=== PATIENT | female | born 1965 | race Caucasian/White ===

== ENCOUNTER 2017-04-13 14:42 | Outpatient (CLI) ==
[2017-04-13 14:54] LABS: BASOPHILS # (AUTO) 0.1 K/uL (0-0.2); BASOPHILS % (AUTO) 0.6 % (0.0-3.0); EOSINOPHILS # (AUTO) 0.2 K/ul (0.0-0.7); EOSINOPHILS % (AUTO) 2.3 % (0.0-7.0); HEMATOCRIT 39.8 % (37.0-47.0); HEMOGLOBIN 13.7 g/dl (12.0-16.0); IMMATURE GRANULOCYTE % (AUTO) 0.6 % (0.0-5.0); LYMPHOCYTES # (AUTO) 2.9 K/uL (0.60-3.4); LYMPHOCYTES % (AUTO) 29.8 (10.0-50.0); MEAN CORPUSCULAR HEMOGLOBIN 28.3 pg (27.0-31.0); MEAN CORPUSCULAR HGB CONC 34.4 (31.8-35.4); MEAN CORPUSCULAR VOLUME 82.2 fl (81.0-99.0); MONOCYTES # (AUTO) 0.9 K/uL (0.4-2.0); NEUTROPHILS # (AUTO) 5.5 K/ul (2.0-6.9); NEUTROPHILS % (AUTO) 57.7; PLATELET COUNT 335 10^3/uL (140-440); RED BLOOD COUNT 4.84 10^6/ul (4.20-5.40); WHITE BLOOD COUNT 9.55 K/ul (4.6-10.2)
[2017-04-13 14:56] LABS: BILIRUBIN,URINE Negative (NEGATIVE); KETONES,URINE Negative (NEGATIVE); LEUKOCYTE ESTERASE ,URINE Negative (NEGATIVE); NITRITE,URINE Positive (NEGATIVE); PH,URINE 7.5 (5-9); PROTEIN,URINE 3+ (NEGATIVE); URINE, BLOOD Negative (NEGATIVE)
[2017-04-13 15:00] LABS: ADD URINE MICROSCOPIC YES
[2017-04-13 15:10] LABS: BACTERIA,URINE 2+ (NOT PRESENT)
[2017-04-13 15:35] LABS: ALBUMIN 3.6 g/dL (3.4-5.0); ANION GAP 14.7; BILIRUBIN,TOTAL 0.51 mg/dL (0.00-1.20); BUN/CREATININE RATIO 11.94; CALCIUM 9.9 mg/dL (8.2-10.2); CHOL/HDL RATIO 5.3 (4.5-5.5); CREATININE 0.67 mg/dL (0.60-1.30); POTASSIUM 3.7 mmol/L (3.5-5.10); TOTAL PROTEIN 7.2 g/dL (6.4-8.2)
== END 2017-04-13 14:43 | disposition home or self-care (01) ==
LOC: LAB 14:42
PROVIDERS: ATTEND Nurse Practitioner Family
DX: I10 Essential (primary) hypertension (principal)
CPT/HCPCS: 36415; 80053; 80061; 81001; 84443; 85025; 87086; 93005; 93010

== ENCOUNTER 2017-05-10 16:17 | Outpatient (CLI) ==
[2017-05-10 17:01] LABS: BILIRUBIN,URINE Negative (NEGATIVE); KETONES,URINE Negative (NEGATIVE); LEUKOCYTE ESTERASE ,URINE Trace (NEGATIVE); NITRITE,URINE Positive (NEGATIVE); PROTEIN,URINE 2+ (NEGATIVE); URINE, BLOOD Negative (NEGATIVE)
[2017-05-10 17:06] LABS: ADD URINE MICROSCOPIC YES; BACTERIA,URINE 3+ (NOT PRESENT)
== END 2017-05-10 16:18 | disposition home or self-care (01) ==
LOC: LAB 16:17
PROVIDERS: ATTEND Nurse Practitioner Family
DX: R30.0 Dysuria (principal)
CPT/HCPCS: 81001; 87086

== ENCOUNTER 2017-11-10 12:15 | Inpatient (IN) ==
[2017-11-10] MEDS ORDERED: ZESTRIL PO STA ×2 (12:33→14:36)
[2017-11-10] MEDS ORDERED: TRANDATE IVP STA (12:41)
--- NOTE | 2017-11-10 14:31 | ED.PDOC ---
General ED Provider: Dr. MARIPOSA BARAJAS Chief Complaint: Hypertension Stated Complaint: HYPERTENSION Time Seen by Physician: 12:17 Mode of Arrival: Walk-In Information Source: Patient Exam Limitations: No limitations Primary Care Provider: YAZMIN NUGENT Nursing and Triage Documentation Reviewed and Agree: Yes Reviewed sepsis parameters & appropriate labs ordered?: Yes System Inflammatory Response Syndrome: Not Applicable Sepsis Protocol: For patient's 13 years and over: Temp is 96.8 and below OR 101 and greater Pulse >90 BPM Resp >20/minute Acutely Altered Mental Status Are patient's symptoms suggestive of a new infection, such as: -Pneumonia -Skin, Soft Tissue -Endocarditis -UTI -Bone, Joint Infection -Implantable Device -Acute Abdominal Infection -Wound Infection -Meningitis -Blood Stream Catheter Infection -Unknown System Inflammatory Response Syndrome: Not Applicable Cardiovascular Complaint Exam - Hypertension Complaint/Exam Onset/Duration: PT OFF MEDS FOR MONTHS TODAY B/P AT HOME WAS HIGH Symptoms Are: Still present Timing: Constant Reported B/P Prior to Arrival: 230/110 Aggravating: Reports: None Alleviating: Reports: None Associated Signs and Symptoms: Denies: Chest pain, Vision changes, Anxiety, Recent stress, Headache, Numbness, Tingling, Weakness, Dizziness, Short of air, Swelling Related History: Reports: Similar episode, Current ARBs Related Surgical History: Reports: None Cardiac Risk Factors: Reports: Hypertension Recent Change in Medications: No A/V [place]: No Papilledema Present: No JVD Present: No Carotid Bruit Present: No Femoral Pulses Bounding: No Differential Diagnoses: Hypertensive Urgency Quality Indicator For Non-Traumatic Chest Pain/Syncope: EKG Performed Review of Systems - Review Of Systems Constitutional: Reports: No symptoms Eyes: Reports: No symptoms Ears, Nose, Mouth, Throat: Reports: No symptoms Respiratory: Reports: No symptoms Cardiac: Reports: No symptoms GI: Reports: No symptoms : Reports: No symptoms Musculoskeletal: Reports: No symptoms Skin: Reports: No symptoms Neurological: Reports: No symptoms Endocrine: Reports: No symptoms Hematologic/Lymphatic: Reports: No symptoms All Other Systems: Reviewed and Negative Past Medical History - Past Medical History Previously Healthy: Yes Endocrine: Reports: None Cardiovascular: Reports: Hypertension Respiratory: Reports: None Hematological: Reports: None Gastrointestinal: Reports: None Genitourinary: Reports: None Neuro/Psych: Reports: None Musculoskeletal: Reports: None Cancer: Reports: None Last Menstrual Period: na - Surgical History General Surgical History: Reports: None - Family History Family History: Reports: None - Social History Smoking Status: Never smoker Hx Substance Use: No Alcohol Screening: None Physical Exam - Physical Exam Appearance: Well-appearing, No pain distress, Well-nourished Eyes: NESSA, EOMI, Conjunctiva clear ENT: Ears normal, Nose normal, Oropharynx normal Respiratory: Airway patent, Breath sounds clear, Breath sounds equal, Respirations nonlabored Cardiovascular: RRR, Pulses normal, No rub, No murmur GI/: Soft, Nontender, No masses, Bowel sounds normal, No Organomegaly Musculoskeletal: Normal strength, ROM intact, No edema, No calf tenderness Skin: Warm, Dry, Normal color Neurological: Sensation intact, Motor intact, Reflexes intact, Cranial nerves intact, Alert, Oriented Psychiatric: Affect appropriate, Mood appropriate Interpretation - Acetaldehyde Converter Operator Rate: Normal Rhythm: Sinus Ectopy: None - EKG Interpretation Rate: Normal Rhythm: Sinus Ectopy: None [place]: NL ST Segment: Normal Physician Notification - Case Discussed Physician Notified: SHANE Time of Notification: 14:37 Admit To: Inpatient Critical Care Note - Critical Care Note Total Time (mins): 0 Course - Course Hematology/Chemistry: 11/10/17 12:45 Orders, Labs, Meds: Lab Review 11/10/17 11/10/17 12:45 12:45 WBC 8.24 RBC 4.59 Hgb 13.3 Hct 38.0 MCV 82.8 MCH 29.0 MCHC 35.0 RDW Coeff of Ly 13.6 Plt Count 282 Immature Gran % (Auto) 0.4 Neut % (Auto) 61.9 Lymph % (Auto) 26.2 Jewell % (Auto) 7.9 Eos % (Auto) 2.8 Baso % (Auto) 0.8 Immature Gran # (Auto) 0.0 Neut # (Auto) 5.1 Lymph # (Auto) 2.2 Jewell # (Auto) 0.7 Eos # (Auto) 0.2 Baso # (Auto) 0.1 Total Creatine Kinase 38 Troponin I < 0.0100 Orders Category Date Time Status EKG-(ED ONLY) Stat CARDIO 11/10/17 12:33 Completed ED IV/MEDIPORT/POWERPORT .ONCE EMERGENCY 11/10/17 12:33 Active CBC W/ AUTO DIFF Stat LAB 11/10/17 12:45 Completed CREATINE KINASE Stat LAB 11/10/17 12:45 Completed TROPONIN I Stat LAB 11/10/17 12:45 Completed URINALYSIS C & S IF INDICATED Stat LAB 11/10/17 12:41 Uncollected 0.9 % Sodium Chloride [Saline Flush] MEDS 11/10/17 12:32 Active 1 syr IVF PRN PRN Labetalol HCl [Trandate] MEDS 11/10/17 12:41 Discontinued 20 mg IVP ONCE STA Medications Generic Name Dose Route Start Last Admin Trade Name Freq PRN Reason Stop Dose Admin Sodium Chloride 1 syr 11/10/17 12:32 Saline Flush IVF PRN PRN To flush IV Discontinued Medications Generic Name Dose Route Start Last Admin Trade Name Freq PRN Reason Stop Dose Admin Labetalol HCl 20 mg 11/10/17 12:41 11/10/17 13:07 Trandate IVP 11/10/17 12:42 20 mg ONCE STA Administration Vital Signs: Temp Pulse Resp BP Pulse Ox 11/10/17 12:18 97.4 F L 64 16 205/112 H 97 BOBBY Risk Score BOBBY Risk Score: Risk Score Odds of by 30D 0 0.1 (0.1-0.2) 1 0.3 (0.2-0.3) 2 0.4 (0.3-0.5) 3 0.7 (0.6-0.9) 4 1.2 (1.0-1.5) 5 2.2 (1.9-2.6) 6 3.0 (2.5-3.6) 7 4.8 (3.8-6.1) Departure - Departure Time of Disposition: 14:35 Disposition: ADMITTED INPATIENT Discharge Problem: Hypertensive urgency Instructions: Hypertension (ED) Condition: Good Pt referred to PMD for follow-up: Yes IPMP verified?: No Additional Instructions: Please call your Family Physician as soon as possible to schedule a follow-up appointment. Allergies/Adverse Reactions: Allergies Penicillins Allergy (Intermediate, Unverified 04/13/17 13:47) bleeding "my pores open up and I start bleeding" Home Medications: Ambulatory Orders 1 [No Reported Medications] 11/10/17 Disposition Discussed With: Patient
[2017-11-10] MEDS ORDERED: SODIUM CHLORIDE 1,000 ML IV STA (14:37)
[2017-11-10] MEDS ORDERED: TYLENOL PO PRN (15:48)
[2017-11-10] MEDS ORDERED: SODIUM CHLORIDE 1,000 ML IV SCH (16:00)
[2017-11-10 16:02] VITALS: BMI 38.7
[2017-11-10] MEDS: LOPRESSOR IVP PRN (16:54)
--- NOTE | 2017-11-10 17:30 | CT ---
EXAM: Noncontrast CT head. HISTORY: Headache. Hypertension. COMPARISON: None available at the time of dictation. TECHNIQUE: Noncontrast CT head was performed with axial , coronal and sagittal reconstructions. Findings: There is preservation of the hill-white differential without evidence of definitive large vessel acut e cortical infarct identified. No acute intracranial hemorrhage is identified. No midline shift is i dentified. No definitive intracranial mass lesion is identified within technical limitations of nonco ntrast CT. The basal cisterns are patent. The ventricles are normal in size and configuration. Limi socorro evaluation of the skull demonstrates no visualized lucent skull acute fractures or destructive os seous lesions identified within the visualized portions of the skull. Partially visualized paranasal sinuses and mastoid air cells appear relatively clear in the visualized regions. Impression: 1. No acute intracranial hemorrhage or definitive large vessel acute cortical infarct identified.
[2017-11-10] MEDS: LIBRIUM PO SCH ×2 (18:30→20:05)
[2017-11-11] MEDS: LOPRESSOR IVP PRN ×2 (05:27→18:42)
[2017-11-11] MEDS: LIBRIUM PO SCH ×3 (10:38→20:53)
[2017-11-11] MEDS: CIPRO PO SCH ×2 (10:38→20:54)
[2017-11-11] MEDS: LOPRESSOR PO SCH ×2 (11:27→17:11)
--- NOTE | 2017-11-11 11:29 | DI ---
EXAM: Chest two views HISTORY: Coughing COMPARISON: None TECHNIQUE: Two views of the chest were performed FINDINGS: The lungs are clear. There is no pleural effusion or pneumothorax. The heart is normal i n size. The mediastinal contour is normal, noting atherosclerosis. There are no acute abnormalities of the bones. IMPRESSION: No acute cardiopulmonary process.
[2017-11-12] MEDS: LOPRESSOR IVP PRN (02:22)
[2017-11-12] MEDS: CIPRO PO SCH ×2 (05:24→21:06)
[2017-11-12] MEDS: LOPRESSOR PO SCH ×2 (09:34→17:09)
[2017-11-12] MEDS: LIBRIUM PO SCH ×3 (09:34→21:06)
[2017-11-12] MEDS ORDERED: DECADRON 4 MG/ML SDV IVP STA (14:05)
[2017-11-12] MEDS: ZESTRIL PO SCH (14:59)
[2017-11-12] MEDS ORDERED: LIPITOR PO SCH (21:00)
[2017-11-13] MEDS: CIPRO PO SCH (05:21)
[2017-11-13] MEDS: LOPRESSOR PO SCH ×2 (08:19→17:28)
[2017-11-13] MEDS: ZESTRIL PO SCH (08:19)
[2017-11-13] MEDS: LIBRIUM PO SCH ×2 (08:19→14:59)
[2017-11-13 15:16] VITALS: BP 136/84; TEMP 97.8
--- NOTE | 2017-12-11 13:46 | HP ---
DATE OF SERVICE: 11/10/17 CHIEF COMPLAINT: Elevated blood pressure HISTORY OF PRESENT ILLNESS: This is a 52 year old female with history of hypertension, GERD who came to the emergency room as the patient had been having some frontal headaches and found to have a blood pressure 205/112. She was seen by Dr. Mehta in the emergency room 20 mg of Labetalol IV push was given and it did not help with the blood pressure. Lisinopril 40 mg was given and did not decrease the blood pressure. Labs were normal. At that time as the patient's blood pressure was not controlled, she was admitted to the hospital for headache and the patient was hypertensive urgency and for controlling the blood pressure. REVIEW OF SYSTEMS: CONSTITUTIONAL: No fever, no chills. Weakness, tiredness. HEENT: Headache, no blurring vision. ENDOCRINE: No weight gain; no weight loss. CVS: No chest pain. No PND, no orthopnea. No shortness of breath. No PND, no orthopnea. RESPIRATORY: No cough, no congestion. No hemoptysis. GI: No nausea, no vomiting. No abdominal pain. No melena. : No hematuria. No polyuria. MUSCULOSKELETAL: No joint swelling. PSYCHIATRIC: Not anxious. No depression. No suicidal thoughts. No homicidal thoughts. SKIN: Intact, no open lesions. PAST MEDICAL HISTORY: Coronary artery disease Hypertension Headaches GERD Aspiration ventilatory for laryngospasm PAST SURGICAL HISTORY: Partial Hysterectomy PERSONAL HISTORY: Does drink alcohol occasionally. FAMILY HISTORY: Significant for triple A. MEDICATIONS: None. ALLERGIES: Penicillin PHYSICAL EXAMINATION: V/S: Blood pressure 205/112, respiratory rate 16, heart rate 64, temperature 97.4. HEENT: Atraumatic, normocephalic. No scleral icterus. NECK: Supple. No JVD, no bruit. No lymphadenopathy. No thyromegaly. HEART: S1, S2 normal. No murmur. No cyanosis or clubbing. No ascites. LUNGS: Clear to auscultation. No rales or rhonchi. ABDOMEN: Soft, nontender. Bowel sounds are active. No CVA tenderness. No rigidity or guarding. EXTREMITIES: No pedal edema. No cyanosis or clubbing MUSCULOSKELETAL: Normal joints, no swelling. NEUROLOGIC: Normal. SKIN: Intact; no open lesions. LYMPHATIC: No lymph nodes palpable. LABS: Sodium 139, potassium 3.7, chloride 102, bicarb 29, BUN 10, creatinine 0.66, glucose 113, white count 8.24, hemoglobin 13.3, hematocrit 38.0, platelet count 282. ASSESSMENT: 1. HYPERTENSIVE URGENCY WITH HEADACHE 2. HISTORY OF PARTIAL HYSTERECTOMY PLAN: 1. Admit the patient to the regular floor. 2. CBC, CMP today and daily. 3. Cardiac enzymes and Troponins. 4. Lopressor 5 mg every 6 hours prn. 5. Lisinopril 40 mg p.o daily. 6. Will start the patient on the Librium p.o. 10 three times daily. TIME SPENT: MORE THAN 65 minutes for admission. MTDD
--- NOTE | 2017-12-11 13:59 | PN ---
DATE OF SERVICE: 11/11/17 SUBJECTIVE: 52 year old female admitted with hypertensive urgency in the emergency room with a headache. The patient was given Labetalol IV push and Metoprolol IV push and then started on the Lisinopril. Blood pressure is still 177/92, 177/97. Headache is better, but has some sinus congestion and cold, otherwise no blurring vision, no chest pain, PND on orthopnea. REVIEW OF SYSTEMS: CONSTITUTIONAL: No fever, no chills. HEENT: Normal. Headache is better. Sinus congestion. ENDOCRINE: No weight gain, no weight loss. CVS: No angina symptoms. No CHF symptoms. No palpitations. No atypical chest pain for CAD. No shortness of breath. No PND, no orthopnea. RESPIRATORY: No cough, no hemoptysis. GI: No nausea, no vomiting. No abdominal pain. : No hematuria. No polyuria. MUSCULOSKELETAL: No joint swelling. PSYCHIATRIC: Not anxious. No depression. No suicidal thoughts. No homicidal thoughts. SKIN: Intact. No rash. PHYSICAL EXAMINATION: GENERAL: Obese lady lying in the bed and not in any distress. V/S: Blood pressure 177/97, respiratory rate 16, heart rate 63, temperature 98.3. HEENT: Normocephalic, atraumatic. Mucosa dry. NECK: Supple. No JVD, no carotid bruit. No lymphadenopathy. LUNGS: Decreased and clear. No rales or rhonchi. HEART: S1, S2 normal. No S3. No murmur, gallop or regurgitation. ABDOMEN: Soft, nontender. Bowel sounds active. No rigidity. No rebound or guarding. No CVA tenderness. EXTREMITIES: No pedal edema. No clubbing or cyanosis MUSCULOSKELETAL: No joint swelling. NEUROLOGIC: Awake, alert, oriented times three. No focal deficit. LYMPHATIC: No lymph nodes palpable. SKIN: Intact. LABS: White count 7.28, hemoglobin 12.2, hematocrit 35.2, platelet count 264, sodium 139, potassium 3.6, chloride 105, bicarb 24, BUN 10, creatinine 0.67, glucose 161. ASSESSMENT: 1. HYPERTENSIVE URGENCY WITH HEADACHE 2. DYSLIPIDEMIA 3. OBESITY 4. GERD 5. URINARY TRACT INFECTION ORGANISM KLEBSIELLA PNEUMONIAE PLAN: 1. Start the patient on the Metoprolol 25 mg twice a day. 2. UTI, so we will put the patient on Cipro 250 mg twice a day. 3. Ordered the lipid profile and TSH. 4. Stop the IV fluids. 5. Out of bed to chair. 6. Activity as tolerated. 7. Start the Librium. TIME SPENT: More than 35 minutes MTDD
--- NOTE | 2017-12-11 14:13 | PN ---
DATE OF SERVICE: 11/12/17 SUBJECTIVE: The patient is complaining of some cough and congestion. No fever or chills. Blood pressure is 164/90, 156/90, 158/56. No headache. No blurring vision. REVIEW OF SYSTEMS: CONSTITUTIONAL: No fever, no chills. HEENT: Normal. No headache. No blurring vision. ENDOCRINE: No weight gain, no weight loss. CVS: No angina symptoms. No CHF symptoms. No palpitations. No atypical chest pain for CAD. No shortness of breath. No PND, no orthopnea. RESPIRATORY: Cough and congestion, no hemoptysis. GI: No nausea, no vomiting. No abdominal pain. : No hematuria. No polyuria. MUSCULOSKELETAL: No joint swelling. PSYCHIATRIC: Not anxious. No depression. No suicidal thoughts. No homicidal thoughts. SKIN: Intact. No rash. PHYSICAL EXAMINATION: V/S: Blood pressure 158/59, respiratory rate 20, heart rate 64, temperature 98.8 , saturation 94. HEENT: Normocephalic, atraumatic. Mucosa dry. NECK: Supple. No JVD, no carotid bruit. No lymphadenopathy. LUNGS: Clear and equal. No rales or rhonchi. HEART: S1, S2 normal. No S3. No murmur, gallop or regurgitation. ABDOMEN: Soft, nontender. Bowel sounds active. No rigidity. No rebound or guarding. No CVA tenderness. EXTREMITIES: No pedal edema. No clubbing or cyanosis MUSCULOSKELETAL: No joint swelling. NEUROLOGIC: Awake, alert, oriented times three. No focal deficit. LYMPHATIC: No lymph nodes palpable. SKIN: Intact. LABS: Sodium 138, potassium 3.9, chloride 106, bicarb 34, BUN 14, creatinine 0.73, white count 9.72, hemoglobin 13.2, hematocrit 38.4, platelet count 319. ASSESSMENT: 1. HYPERTENSIVE URGENCY WITH HEADACHE 2. URINARY TRACT INFECTION ORGANISM KLEBSIELLA 3. OBESITY 4. UPPER RESPIRATORY INFECTION 5. DYSLIPIDEMIA PLAN: 1. We will give a dose of 1 cc of Decadron. 2. Start the patient on the Lipitor 20 mg p.o. daily. 3. Continue the Metoprolol 50 p.o. twice daily. 4. Add Lisinopril 10 mg p.o. daily. TIME SPENT: More than 35 minutes MTDD
--- NOTE | 2017-12-28 09:13 | DS ---
DATE OF SERVICE: 11/13/17 FINAL DIAGNOSIS: 1. Hypertensive urgency 2. GERD 3. UTI 4. Status post partial hysterectomy 5. Occasional alcohol use 6. Hyperglycemia 7. Dyslipidemia DISCHARGE INSTRUCTIONS: Discharge the patient home. Followup with the family Physician within one week. Keep monitoring the blood pressure. MEDICATIONS AT DISCHARGE/NEW PRESCRIPTIONS: Lipitor 20mg PO daily Lisinopril 40mg PO daily Metoprolol 50mg PO twice a day Cipro 250mg twice a day for 5 more days. DIET INSTRUCTIONS: Low salt diet ACTIVITY: Gradually resume regular activity DISEASE SPECIFIC EDUCATION: Blood pressure Risk of intracranial bleed been discussed and verbalized understanding. HOSPITAL COURSE: Kristin Null who is a 52 year old female goes to [facility] came to the emergency room with the headaches, blurry vision and checking the blood pressure at home and it was 236/127. Came to the emergency room and was seen by the ER physician, Dr. Mehta. Blood pressure 204/112, 20mg IV push Labetalol was given. CT head was negative for the stroke and she is being admitted to the hospital for hypertensive urgency and emergency for management. The patient again was given Labetalol IV push on the floor 5mg. Started on the Lisinopril, Metoprolol 50mg twice a day. The patient is occasional drinker, Thiamin and multivitamin IV fluids been given. Sugar were high 141, 148 and A1c 6.3. Cholesterol profile was bad, total cholesterol 243, triglyceride 261 and HDL is 40. Urinary tract infection was positive for Klebsiella Pneumoniae did grow in the culture sensitive to the Cipro, started on the Cipro initially, IV Rocephin was given. The patient was feeling better, up and about and did not have any problems. Blood pressure been controlled good. 124/78, 135/77 and 136/84. Walking and did not have any complications. At that time the patient being discharged home. TIME SPENT: MORE THAN 60 MINUTES MTDD
== END 2017-11-13 17:35 | disposition home or self-care (01) | DRG 305 ==
LOC: ED 12:15 → MEDSURG B 14:44
PROVIDERS: ADMIT Emergency Medicine; ATTEND Emergency Medicine
DX: I16.0 Hypertensive urgency (principal); N39.0 Urinary tract infection, site not specified; R51 Headache; R73.9 Hyperglycemia, unspecified; J06.9 Acute upper respiratory infection, unspecified; E78.5 Hyperlipidemia, unspecified; K21.9 Gastro-esophageal reflux disease without esophagitis; E66.9 Obesity, unspecified; B96.1 Klebsiella pneumoniae [K. pneumoniae] as the cause of diseases classified elsewhere
CPT/HCPCS: 36415; 80053; 80061; 80306; 81001; 82550; 82962; 83036; 84443; 84484; 85025; 87086; 87186; 93005; 93010; 96374; 99284